=== PATIENT | female | born 1970 | race Caucasian/White ===

== ENCOUNTER 2025-05-14 15:50 | Emergency (ER) | payer BC, SELFPAY ==
[2025-05-14 15:52] VITALS: BP 152/90; PULSE 90; RESP 17; TEMP 36; O2SAT 97
--- NOTE | 2025-05-14 16:00 | DI.RAD_ITS ---
Exam(s) XR FOOT RT COMPLETE EXAM: XR FOOT RT COMPLETE CLINICAL HISTORY: forefoot pain (dorsum of foot). TECHNIQUE: 2D digital imaging was performed. Six views, weight-bearing and nonweightbearing views. COMPARISON: No exams were available for comparison FINDINGS: BONES: No acute fracture is present. No bony destructive lesion is seen. Small plantar calcaneal spur. JOINTS: No dislocation present. SOFT TISSUE: Soft tissue swelling over the dorsum of the foot. No abnormal gas collection or foreign body. IMPRESSION: Soft tissue swelling. No evidence of fracture. The preliminary [facility] report was reviewed. DATA REPOSITORY: RADIATION DOSE DELIVERED:
--- NOTE | 2025-05-14 16:00 | DI.RAD_ITS ---
Exam(s) XR ANKLE RT COMPLETE EXAM: XR ANKLE RT COMPLETE CLINICAL HISTORY: R lateral ankle pain, popped and rolled while walk. TECHNIQUE: 2D digital imaging was performed. Three views. COMPARISON: No exams were available for comparison FINDINGS: BONES: No acute fracture is present. No bony destructive lesion is seen. Small plantar calcaneal spur. JOINTS: The ankle mortise is normally aligned. SOFT TISSUE: Mild soft tissue swelling around the malleoli. IMPRESSION: Soft tissue swelling. No acute bony abnormality. The preliminary [facility] report was reviewed. DATA REPOSITORY: RADIATION DOSE DELIVERED:
--- NOTE | 2025-05-14 16:07 | ED.GENADUL_ITS ---
Discharge Plan Disposition Patient Disposition: Home Discharge Details Clinical Impression: Right ankle sprain Primary Care Provider: Unknown,Unknown ED Provider: Filomena Strong Home Meds and New Rx's Prescriptions: No Action No Known Home Meds Discharge Instructions Additional Instructions: Please call your primary care provider for reassessment/PT evaluation in the next couple of weeks. There is no evidence of fracture on x-ray You may use the walking boot for comfort/ankle support. I recommend that you do gentle ankle mobilization exercises when you are resting. You may use Tylenol, ibuprofen, and ice packs. Elevate your foot above heart level to help with swelling and pain. Return to emergency care if you notice any numbness/blueness/coldness to your foot, severe pain, or if you are very worried and need to be rechecked again immediately Stand Alone Forms: Portal Information HPI General Date/Time Provider Initiated Documentation: 05/14/25 15:57 . HPI Narrative: Leena is a 55-year-old female who presents to the emergency department today for evaluation of right ankle pain. Reports that she twisted her ankle and felt a pop while she was [place] today looking for her father's gravestone. She has been able to only partially bear weight, hopping along. Denies numbness/tingling to foot, knee pain, other injuries. She has taken Tylenol for her discomfort. Related Data Home Medications ?Medication ?Instructions ?Recorded ?Confirmed Unknown [No Known Home Meds] 05/14/25 1 07/15/24 Allergies Allergy/AdvReac Type Severity Reaction Status Date / Time No Known Allergies Allergy Unverified 05/14/25 16:37 General Stated Complaint: Orthopedic TINA: 4 Exam Const General: cooperative, healthy appearing, comfortable, no acute distress and well developed Nutritional Appearance: average body habitus and well nourished Orientation: alert and oriented x3 Resp Effort & Inspection: normal respiratory effort and able to speak in complete sentences Skin General skin exam: no rashes or lesions noted Trauma: no lacerations or abrasions Neuro General: patient alert, patient oriented x3, tone normal and moves all extr emities Extrem Right lower extremity: ankle Details: tenderness Location: of the lateral malleolus, swelling Details: laterally, normal ROM and other (achilles tendon exam normal); no unusual warmth, no abrasions, no lacerations, no ecchymosis, no crepitus, no foreign bodies and no penetrating wound and foot Details: normal capillary refill, tenderness Location: of the dorsal foot and toes with normal ROM; no unusual warmth, no abrasion, no laceration, no ecchymosis, no crepitus, no foreign bodies and no puncture wound Left lower extremity: normal to inspection Course Vital Signs Vital signs: Vital Signs Temperature 36.0 C L 05/14/25 15:52 Pulse 90 05/14/25 15:52 Respiratory Rate 17 05/14/25 15:52 Blood Pressure 152/90 H 05/14/25 15:52 Pulse Oximetry 97 05/14/25 15:52 Temperature 36.0 C L 05/14/25 15:52 Temperature Source Tympanic 05/14/25 15:52 Pulse 90 05/14/25 15:52 Respiratory Rate 17 05/14/25 15:52 Blood Pressure 152/90 H 05/14/25 15:52 Blood Pressure Position Sitting 05/14/25 15:52 Pulse Oximetry 97 05/14/25 15:52 Oxygen Delivery Method Room Air 05/14/25 15:52 Oxygen Flow Rate 0 05/14/25 15:52 Pain Level 6 05/14/25 15:52 Medical Decision Making Leena is a 55-year-old female who presents to the emergency department today for evaluation of right ankle pain. Reports that she twisted her ankle and felt a pop while she was walking around [place] icy [place] today looking for her father's gravestone. She has been able to only partially bear weight, hopping along. Denies numbness/tingling to foot, knee pain, other injuries. She has taken Tylenol for her discomfort. Physical exam remarkable for mild tenderness and swelling located behind the ri ght lateral malleolus. No obvious ecchymosis, skin tears, abrasions. Also has mild tenderness noted along dorsum of foot. Full range of motion to ankle. Distal pulses intact, sensation grossly intact,+ CMS to toes. No pain to palpation of tibia/fibula. Full painless range of motion to knee. Achilles intact with Cruz test DDx includes was not limited to: Fracture, sprain, other soft tissue injury I independently interpreted the following tests: Right ankle and foot x-rays, no acute abnormalities noted. This confirmed by radiologist While in the emergency department Leena received ice for discomfort. A walking boot was provided for comfort, as patient is only able to partially weight-bear due to discomfort. History and presentation consistent with sprain, likely calcaneofibular or anterior talofibular ligament disruption. Reviewed discharge instructions with patient, including importance of follow-up with PCP/PT, symptomatic management, and red flags indicate need for return to emergency care. She voices agreement with plan of care. Imaging Data Radiologic Study: Radiologist's impression: PROCEDURE INFORMATION: Exam: XR Right Ankle Exam date and time: 05/14/2025 4:16 PM Age: 55 years old Clinical indication: Right; R lateral ankle pain, popped and rolled while walk TECHNIQUE: Imaging protocol: Radiologic exam of the right ankle. Views: 3 or more views. COMPARISON: No relevant prior studies available. FINDINGS: Bones/joints: Normal. Soft tissues: Mild lateral soft tissue swelling. IMPRESSION: No evidence for fracture Radiologic Study #2: Radiologist's impression: PROCEDURE INFORMATION: Exam: XR Right Foot Exam date and time: 05/14/2025 4:17 PM Age: 55 years old Clinical indication: Right; Pain at forefoot (dorsum) TECHNIQUE: Imaging protocol: Radiologic exam of the right foot. Views: 3 or more views. COMPARISON: CR XR ANKLE RT COMPLETE 05/14/2025 4:16 PM FINDINGS: Bones/joints: Normal. Soft tissues: Normal. IMPRESSION: No evidence for fracture. PFSH All Active Problems (Updated 05/14/25 @ 16:59 by Filomena Morris) Right ankle sprain (Acute) Social History Smoking/Tobacco Use Status: Never Smoking risk assessment performed?: Yes Alcohol Intake: never Drug use: Never Substance use type: does not use Housing: house
--- NOTE | 2025-05-14 16:36 | DI.[facility]_ITS ---
PROCEDURE INFORMATION: Exam: XR Right Ankle Exam date and time: 05/14/2025 4:16 PM Age: 55 years old Clinical indication: Right; R lateral ankle pain, popped and rolled while walk TECHNIQUE: Imaging protocol: Radiologic exam of the right ankle. Views: 3 or more views. COMPARISON: No relevant prior studies available. FINDINGS: Bones/joints: Normal. Soft tissues: Mild lateral soft tissue swelling. IMPRESSION: No evidence for fracture. Dictated and Authenticated by: Estefany Castro MD. Orderin Mellissa Butt MD
--- NOTE | 2025-05-14 16:39 | DI.[facility]_ITS ---
PROCEDURE INFORMATION: Exam: XR Right Foot Exam date and time: 05/14/2025 4:17 PM Age: 55 years old Clinical indication: Right; Pain at forefoot (dorsum) TECHNIQUE: Imaging protocol: Radiologic exam of the right foot. Views: 3 or more views. COMPARISON: CR XR ANKLE RT COMPLETE 05/14/2025 4:16 PM FINDINGS: Bones/joints: Normal. Soft tissues: Normal. IMPRESSION: No evidence for fracture. Dictated and Authenticated by: Estefany Castro MD. Orderin Mellissa Butt MD
== END 2025-05-14 17:06 | disposition home or self-care (01) ==
PROVIDERS: Emergency Provider Nurse Practitioner Family
DX: S93.401A Sprain of unspecified ligament of right ankle, initial encounter (principal); M77.31 Calcaneal spur, right foot; X50.1XXA Overexertion from prolonged static or awkward postures, initial encounter; Y93.01 Activity, walking, marching and hiking; Y92.89 Other specified places as the place of occurrence of the external cause
CPT/HCPCS: 99283; 73610; 73630